=== PATIENT | female | born 1945 | race Caucasian/White ===

== ENCOUNTER 2019-11-29 13:47 | Outpatient (CLI) | payer MEDICARE, MEDICAID ==
[~2019-11-29] VITALS: Ht 152.4 cm; Wt 47.6 kg
[2019-11-29] MEDS ORDERED: IV NS 0.9% 250 ML IV ONE (15:12)
[2019-11-29] MEDS ORDERED: IOHEXOL-350 100 ML VIAL IV ONE (15:12)
[2019-11-29] MEDS ORDERED: CT SWABBABLE VALVE TRANS SET 1 EA INFUS.SET MC ONE (15:12)
[2019-11-29 15:17] LABS: CALCIUM, SERUM 9.3 mg/dL (8.5-10.1); CREATININE 0.8 mg/dL (0.6-1.3); POTASSIUM 4.9 mmol/L (3.5-5.1)
[2019-11-29] MEDS ORDERED: NITROGLYCERIN 0.4 MG/TAB BOTTLE ONE (15:46)
[2019-11-29] MEDS ORDERED: METOPROLOL TARTRATE INJ 5 MG/5 ML AMPUL ONE (15:59)
[2019-11-29] MEDS ORDERED: METOPROLOL TARTRATE INJ 5 MG/5 ML AMPUL IVP PRN (16:00)
[2019-11-29] MEDS ORDERED: NITROGLYCERIN 0.4 MG/TAB BOTTLE SL ONE (16:00)
--- NOTE | 2019-11-29 16:44 | NUR ---
RECEIVED PT FROM EMBEDDED SOFTWARE ENGINEER S/P CARDIAC CT ANGIOGRAM WITH STABLE V/S.PT ALERT AND VERBALLY RESPONSIVE.[place] SPEAKING WITH DAUGHTER AT THE BEDSIDE.DENIES ANY PAIN OR DISTRESS.ORIENTED TO HER ROOM.DAUGHTER IS VERY EAGER TO DISCHARGE THE PT.ORDERED DINNER TRAY.WILL DISCHARGE PT HOME.
[2019-11-29 16:45] VITALS: BP 121/65
--- NOTE | 2019-11-29 18:00 | NUR ---
DISCHARGED PT HOME WITH STABLE V/S ACCOMPANIED BY HER GRANDDAUGHTER VIA PRIVATE CAR.IV H/L REMOVED TO RT AC WITH NO BLEEDING NOTED.
== END 2019-11-29 23:59 | disposition home or self-care (01) ==
LOC: CT 13:47
PROVIDERS: ATTEND Internal Medicine Interventional Cardiology
DX: R07.9 Chest pain, unspecified (principal)
CPT/HCPCS: 36415; 75574; 80048; J3490; J7050; Q9967